=== PATIENT | female | born 1955 | race African-American/Black ===

== ENCOUNTER 2017-11-16 07:46 | Outpatient (CLI) | payer MEDICARE | END 2017-11-16 07:47 | disposition home or self-care (01) | LOC: BICMAMMO 07:46 | PROVIDERS: ATTEND Family Medicine | DX: Z12.31 Encounter for screening mammogram for malignant neoplasm of breast (principal); R92.1 Mammographic calcification found on diagnostic imaging of breast; Z80.3 Family history of malignant neoplasm of breast | CPT/HCPCS: 77063; G0202; 77067 ==

== ENCOUNTER 2018-12-29 13:28 | Outpatient (CLI) | payer MEDICARE ==
--- NOTE | 2018-12-29 17:10 | ULT ---
ULTRASOUND RIGHT BREAST: INDICATION: Ultrasound of the outer right breast was performed to assess a palpable area of concern noted by the patient. No mammographic abnormality identified. FINDINGS: No sonographic abnormality identified at the site of palpable concern. IMPRESSION: Ultrasound findings are BIRADS 1: negative. Recommend clinical correlation regarding any palpable ab normality. POS: LUPE
== END 2018-12-29 13:29 | disposition home or self-care (01) ==
LOC: BICMAMMO 13:28
PROVIDERS: ATTEND Family Medicine
DX: N63.11 Unspecified lump in the right breast, upper outer quadrant (principal); R92.1 Mammographic calcification found on diagnostic imaging of breast; Z80.3 Family history of malignant neoplasm of breast
CPT/HCPCS: 76642; 77066; G0279

== ENCOUNTER 2020-12-05 08:56 | Outpatient (CLI) | payer MEDICARE ==
--- NOTE | 2020-12-05 09:55 | MMO ---
Bilateral MAMMO Bilat Screen [facility]. CLINICAL HISTORY: Patient is 65 years old and is seen for screening. The patient has no family history of breast cancer. The patient has no personal history of cancer. VIEWS: The views performed were: bilateral craniocaudal with tomosynthesis and bilateral mediolateral oblique with tomosynthesis. FILMS COMPARED: The present examination has been compared to prior imaging studies performed at [facility] on 11/16/2017 and 12/29/2018, at [facility] on 12/27/2014, and at [facility] on 03/26/2016. This study has been interpreted with the assistance of computer-aided detection. MAMMOGRAM FINDINGS: The breasts are almost entirely fat. There are stable benign appearing calcifications seen in both breasts. There are no suspicious masses, suspicious calcifications, or new areas of architectural distortion. IMPRESSION: THERE IS NO MAMMOGRAPHIC EVIDENCE OF MALIGNANCY. A ROUTINE FOLLOW-UP MAMMOGRAM IN 1 YEAR IS RECOMMENDED. THE RESULTS OF THIS EXAM WERE SENT TO THE PATIENT. ACR BI-RADS Category 2 - Benign finding MAMMOGRAPHY NOTE: 1. A negative mammogram report should not delay a biopsy if a dominant of clinically suspicious mass is present. 2. Approximately 10% to 15% of breast cancers are not detected by mammography. 3. Adenosis and dense breasts may obscure an underlying neoplasm. Reported by: HAMMAD JOHNSON MD Electonically Signed: [id number]
--- NOTE | 2020-12-05 10:11 | BD ---
EXAM: Bone densitometry using DEXA HISTORY: 65 yo female. Screening for postmenopausal osteoporosis FINDINGS: L1--bone mineral density 1.110 g/sq cm; T score 1.1 ; Z score 1.9 L2--bone mineral density 1.218 g/sq cm; T score 1.7 ; Z score 2.7 L3--bone mineral density 1.302 g/sq cm; T score 2.0 ; Z score 3.0 L4--bone mineral density 1.384 g/sq cm; T score 2.9 ; Z score 4.0 Total L1-L4--bone mineral density 1.264 g/sq cm; T score 2.0 ; Z score 2.9 Left femoral neck--bone mineral density0.808; T score -0.4 ; Z score 0.2 Total proximal left femur--bone mineral density 1.076; T score 1.1 ; Z score 1.2 There has been an interval improvement of 7.2% in the BMD of the lumbar spine and a reduction of 4. 1% in the BMD of the proximal femur since the previous study of 11/09/2013. IMPRESSION: Normal BMD
== END 2020-12-05 08:57 | disposition home or self-care (01) ==
LOC: BICMAMMO 08:56
PROVIDERS: ATTEND Student in an Organized Health Care Education/Training Program
DX: Z12.31 Encounter for screening mammogram for malignant neoplasm of breast (principal); Z13.820 Encounter for screening for osteoporosis; Z78.0 Asymptomatic menopausal state
CPT/HCPCS: 77063; 77067; 77080

== ENCOUNTER 2022-04-23 10:35 | Outpatient (CLI) | payer MEDICARE | END 2022-04-23 10:36 | disposition home or self-care (01) | LOC: BICMAMMO 10:35 | PROVIDERS: ATTEND Student in an Organized Health Care Education/Training Program | DX: Z12.31 Encounter for screening mammogram for malignant neoplasm of breast (principal) | CPT/HCPCS: 77063; 77067 ==

== ENCOUNTER 2023-06-03 08:41 | Outpatient (CLI) | payer OTHER | END 2023-06-03 08:42 | disposition home or self-care (01) | LOC: BICMAMMO 08:41 | PROVIDERS: ATTEND Student in an Organized Health Care Education/Training Program | DX: Z12.31 Encounter for screening mammogram for malignant neoplasm of breast (principal) | CPT/HCPCS: 77063; 77067 ==

== ENCOUNTER 2024-02-09 09:52 | Outpatient (CLI) | payer OTHER | END 2024-02-09 09:53 | disposition home or self-care (01) | LOC: BICRAD 09:52 | PROVIDERS: ATTEND Family Medicine | DX: R20.0 Anesthesia of skin (principal); M47.812 Spondylosis without myelopathy or radiculopathy, cervical region; M50.31 Other cervical disc degeneration, high cervical region; M50.321 Other cervical disc degeneration at C4-C5 level; M50.322 Other cervical disc degeneration at C5-C6 level | CPT/HCPCS: 36415; 72040; 80053; 80061; 82043; 83036 ==

== ENCOUNTER 2025-07-04 09:37 | Outpatient (CLI) | payer OTHER | END 2025-07-04 09:38 | disposition home or self-care (01) | LOC: BICMAMMO 09:37 | PROVIDERS: ATTEND Family Medicine | DX: Z12.31 Encounter for screening mammogram for malignant neoplasm of breast (principal) | CPT/HCPCS: 77063; 77067 ==

== ENCOUNTER 2025-08-14 11:05 | Emergency (ER) | payer OTHER ==
[2025-08-14 13:13] LABS: #Basophils 0.03 10x3/uL (0.0-0.2); #Eosinophils Less than 0.03 10x3/uL (0.0-0.7); #Monocytes 0.48 10x3/uL (0.11-0.59); #Neutrophils 4.45 10x3/uL (1.40-6.50); %Basophils 0.6 % (0.0-1.0); %Eosinophils 0.2 % (0.0-10.0); %Lymphocytes 6.7 % (21.0-51.0); %Monocytes 9.0 % (0.0-10.0); %Neutrophils 83.1 % (42.0-75.0); Hematocrit 35.9 % (36.0-47.0); Hemoglobin 11.1 g/dL (12.0-16.0); Mean Corpuscular Hemoglobin 26.7 pg (27.0-31.0); Mean Corpuscular Volume 86.5 fL (78.0-98.0); Platelet Count 267 10x3/uL (130-400); Red Blood Cell (RBC) Count 4.15 mill/uL (4.20-5.40); White Blood Cell (WBC) Count 5.35 10x3/uL (4.8-10.8)
[2025-08-14 13:36] LABS: ALT (SGPT) 20 U/L (Less than 34); AST (SGOT) 31 U/L (11-34); Albumin 3.2 g/dL (3.1-4.5); Alkaline Phosphatase 83 U/L (40-110); Anion Gap 18 mmol/L (10-20); BUN (Urea Nitrogen) 12 mg/dL (9.8-20.1); Bilirubin, Total 0.3 mg/dL (0.3-1.2); Calc. Creatinine Clearance 0 mL/min (70-130); Calcium 9.7 mg/dL (7.8-10.44); Carbon Dioxide 21 mmol/L (23-31); Chloride 102 mmol/L (98-107); Globulin 3.6 g/dL (2.4-3.5); Glucose 195 mg/dL (80-115); Potassium 4.1 mmol/L (3.5-5.1); Sodium 137 mmol/L (136-145)
[2025-08-14 15:19] LABS: Bacteria/HPF None Seen HPF (None Seen); CAUTI Indications for Culture Alt mental st,lethar; Glucose, Urine (Dipstick) 100 mg/dL (Negative); Leukocyte Negative Leu/uL (Negative); Protein, Urine (Dipstick) Negative (Neg-Trace); RBC/HPF 0-3 HPF (0-3); Specific Gravity, Urine 1.010 (1.002-1.036); WBC/HPF 0-3 HPF (0-3)
[2025-08-14 15:22] LABS: Urine Culture Reflex No No
== END 2025-08-14 15:46 | disposition home or self-care (01) ==
LOC: ERS 11:05
DX: M54.50 Low back pain, unspecified (principal); M25.521 Pain in right elbow; I10 Essential (primary) hypertension; E11.40 Type 2 diabetes mellitus with diabetic neuropathy, unspecified; W06.XXXA Fall from bed, initial encounter
CPT/HCPCS: 36415; 70450; 72128; 72131; 80053; 81001; 82550; 85025; 93005